=== PATIENT | female | born 1965 | race African-American/Black ===

== ENCOUNTER 2017-01-20 10:26 | Emergency (ER) | payer MEDICARE, MEDICAID ==
[~2017-01-20] VITALS: Ht 172.7 cm; Wt 124.7 kg
[~2017-01-20 10:26] MED LIST: ABILIFY2 MG ORAL; AZITHROMYCIN250 MG ORAL; BENADRYL A12.5 MG/5 ORAL; CILOXAN 0.3% O1 DROP BOTH EYES; COGENTIN1 MG ORAL; GENTAK5 ML BOTH EYES; KENALOG 0.1% CR15 GM APPLIC; METFORMIN HCL500 M1 ORAL; NEVIRAPINE 50 MG/5 ML PO; ZOLOFT25 MG ORAL; ZYPREXA2.5 MG ORAL; [UNRECOGNIZED DRUG - OTHER] PO
[2017-01-20 10:56] VITALS: BP 111/79
[2017-01-20 12:12] VITALS: BP 111/79
--- NOTE | 2017-01-20 16:44 | Diagnostic Imaging Report ---
Indication: PAIN Technique: 3 views left hand Comparison: none Findings: Unusual focal area of chronic appearing periosteal thickening is seen on the proximal ulnar aspect of the third proximal phalangeal shaft. No acute fractures. No dislocations. The joint spaces are preserved. Impression: No acute bony trauma Unusual focal chronic appearing periosteal thickening of the third proximal phalanx
--- NOTE | 2017-01-20 16:44 | Diagnostic Imaging Report ---
Clinical Indication:PAIN Technique: 3 views of the the wrist Comparison: None Findings: No acute fractures. No dislocations. The joint spaces are preserved. Impression: Negative
--- NOTE | 2017-01-21 14:57 | Emergency Room Report ---
History of Present Illness General Chief Complaint: Upper Extremity Injury Source: Patient Present Illness HPI 51-year-old female presents ED complaining of left wrist pain and swelling. States 3 days ago she actually hit her left hand against a metal pole. Notes continuing pain and swelling to the left wrist since. 03/18. dull. Nonradiating. No other aggravating or relieving factors. Denies any other injuries. Denies any other associated symptoms Allergies: Coded Allergies: No Known Allergies (Verified Allergy, Unknown, 12/08/06) Patient History Past Medical History: DM, HTN Past Surgical History: none Pertinent Family History: none Social History: Denies: alcohol use, drug use, smoking Last Menstrual Period: hyst Now: No Immunizations: UTD Reviewed Nursing Documentation: PMH: Agreed, PSxH: Agreed Nursing Documentation-PMH Past Medical History: No History, Except For Hx Cardiac Problems: No - HIV Hx Hypertension: Yes Hx Diabetes: Yes Review of Systems All Other Systems: negative except mentioned in HPI Physical Exam Vital Signs Date Time Temp Pulse Resp B/P Pulse Ox O2 Delivery O2 Flow Rate FiO2 01/20/17 10:40 98.4 82 18 111/79 98 Room Air Sp02 EP Interpretation: reviewed, normal General Appearance: no apparent distress, alert, GCS 15, non-toxic Head: normocephalic Eyes: bilateral eye PERRL, bilateral eye normal inspection ENT: normal ENT inspection Neck: normal inspection Respiratory: normal inspection Cardiovascular #1: normal inspection Gastrointestinal: normal inspection Rectal: deferred Genitourinary: no CVA tenderness Musculoskeletal: tender - L wrist Neurologic: alert, oriented x3, responsive, motor strength/tone normal, sensory intact, speech normal Psychiatric: normal inspection Skin: normal inspection Lymphatic: normal inspection Procedures Splinting Splinting : Consent: Verbal Pre-Made Type: AYLA wrap - L wrist Pre-Proc Neuro Vasc Exam: normal Post-Proc Neuro Vasc Exam: normal Patient Tolerated: Well Complications: None Medical Decision Making Diagnostic Impression: Primary Impression: Wrist contusion Qualified Codes: S60.212A - Contusion of left wrist, initial encounter ER Course Hospital Course 51-year-old F presents to ED complaining of L wrist pain s/p hit metal pole Differential diagnoses include: Fracture, dislocation, sprain, contusion Clinical course Patient placed on stretcher. After initial history and physical, I ordered Xrays of L wrist/hand Xrays prelim read shows no acute fracture/dislocation. placed in ayla wrap Diagnosis - wrist contusion Stable and discharged to home. apply ice, keep elevated. weight bear as tolerated. Followup with PMD. Return to ED if symptoms recur or worsen Other X-Ray Diagnostic Results X-Ray ordered: L wrist, L hand # of Views/Limited Vs Complete: 3 View Interpretation: no fractures, no dislocation, no soft tissue swelling Indication: Pain Impression: No acute disease Date Electronically Signed: Jan 20, 2017 Time Electronically Signed: 12:30 Interpreting ER Physician: Timmy Worrell MD Last Vital Signs Date Time Temp Pulse Resp B/P Pulse Ox O2 Delivery O2 Flow Rate FiO2 01/20/17 12:12 98.4 81 18 111/79 98 Room Air Status: improved Disposition: HOME, SELF-CARE Condition: Stable Patient Instructions: Contusion, [id number] TIMMY WORRELL M.D. Jan 21, 2017 14:57
== END 2017-01-20 12:19 | disposition home or self-care (01) ==
LOC: EMR 11:36
DX: S60.212A Contusion of left wrist, initial encounter (principal); W22.8XXA Striking against or struck by other objects, initial encounter; Y93.9 Activity, unspecified; Y92.9 Unspecified place or not applicable; I10 Essential (primary) hypertension; E11.9 Type 2 diabetes mellitus without complications
CPT/HCPCS: 29260; 99284

== ENCOUNTER → 2017-03-04 | Outpatient (CLI) | payer MEDICARE, MEDICAID ==
--- NOTE | 2017-03-05 08:33 | Diagnostic Imaging Report ---
Indications: Persistent pain in left wrist since trauma 6 weeks ago Technique: Coronal and axial T1-weighted fast spin-echo and proton density weighted fat saturated fast spin-echo, coronal proton density weighted fast spin-echo, axial T2-weighted fat-saturated fast spin-echo, and sagittal STIR sequences of the left breast performed without intravenous or intra-articular gadolinium administration. Findings: Comparison: None The first extensor tendon compartment beginning at the level of the distal radius and extending distally is abnormal. The contained extensor pollicis brevis and abductor pollicis longus tendons are intact but appear enlarged and diffusely edematous from the level of the radial styloid distally. No discrete linear signal change. These changes extend to the distal insertion site of the abductor pollicis longus tendon; the distal extent of the extensor pollicis brevis tendon is not imaged. The surrounding tendon sheaths are expanded and fluid-filled. The overlying soft tissues are edematous. Remaining extensor and all flexor tendons appear intact, normal in configuration and signal characteristics without intrinsic signal change or surrounding fluid. Carpal tunnel is unremarkable in appearance. Guyon's canal is unremarkable in appearance. Extensor and flexor retinacula, dorsal radial ulnar, radioscaphocapitate, ulnotriquetral, scapholunate, and lunotriquetral ligaments appear intact. Triangular fibrocartilage appears intact, normal in configuration and signal characteristics. Its radial, foveal, and ulnar styloid attachments appear intact. Ulnomeniscal homologue appears intact. There is suggestion of mild edema adjacent to the latter 2 structures. A cluster of small cystic-appearing foci is present in the deep soft tissues immediately adjacent to the volar margin of the radioscaphoid joint, female with early measuring approximately 10 x 9 x 7 mm. Surrounding soft tissues are unremarkable. Small cystic foci are also noted in multiple carpal bones. The distal radius and ulna, proximal and distal carpal row, and proximal metacarpals all demonstrate normal configuration and otherwise normal signal characteristics. No evidence of fracture. Articular alignments all appear intact. No abnormal joint space widening. IMPRESSION: Abnormalities of the first extensor tendon compartment as described. Diagnostic possibilities include moderate to high-grade traumatic tendon strains without discrete tear or De Quervain's tenosynovitis, of which this is a classic MRI appearance. Though this entity is typically caused by chronic overuse, it can also be seen in the setting of acute trauma. Suggestion of mild edema adjacent to the peripheral components of the fragment fibrocartilage complex, of uncertain significance. Image resolution is insufficient for optimal evaluation. If clinically indicated, recommend repeat MRI/MR arthrography on a scanner capable of high-resolution musculoskeletal imaging. Cluster of small cystic foci adjacent to volar margin of radioscaphoid joint, nonspecific, most likely small ganglion cysts Small intracarpal cysts may be degenerative
== END | disposition home or self-care (01) ==
LOC: MRI 08:55
DX: M25.532 Pain in left wrist (principal)

== ENCOUNTER 2017-07-03 10:21 | Emergency (ER) | payer MEDICARE, MEDICAID ==
[~2017-07-03] VITALS: Ht 172.7 cm; Wt 125.6 kg
[2017-07-03 10:25] VITALS: BP 131/85
[2017-07-03] MEDS ORDERED: EPZICOM1 TAB ORAL (10:30)
--- NOTE | 2017-07-03 10:39 | Emergency Room Report ---
History of Present Illness General Chief Complaint: Eye Problems Source: Patient Present Illness HPI Patient presents with complaints of left thigh and redness and discharge Started 2 days ago and noticed increased discharge today Denies any visual change Denies any headache She feels an irritation and scratchy sensation in the left eye Denies any fevers or chills Denies any rash otherwise Allergies: Coded Allergies: No Known Allergies (Verified Allergy, Unknown, 12/08/06) Patient History Past Medical History: see triage record Pertinent Family History: none Last Menstrual Period: Post Reviewed Nursing Documentation: PMH: Agreed, PSxH: Agreed Nursing Documentation-PMH Hx Cardiac Problems: No - HIV+ Hx Hypertension: Yes Hx Diabetes: Yes - PREDIABETIC Review of Systems All Other Systems: negative except mentioned in HPI Physical Exam Vital Signs Date Time Temp Pulse Resp B/P (MAP) Pulse Ox O2 Delivery O2 Flow Rate FiO2 07/03/17 10:25 97.9 88 17 131/85 96 Room Air Sp02 EP Interpretation: reviewed, normal General Appearance: well appearing, no apparent distress Head: normocephalic, atraumatic Eyes: left eye other - Conjunctival erythema mild discharge, upper and lower eyelids also appear mildly inflamed, otherwise extraocular motor intact, no signs of any foreign body, pupils react appropriately, ENT: normal pharynx, no angioedema Neck: supple, thyroid normal Respiratory: lungs clear, normal breath sounds Cardiovascular #1: regular rate, rhythm, no edema Musculoskeletal: normal inspection Neurologic: alert, oriented x3, responsive Skin: other - as above Lymphatic: no adenopathy Medical Decision Making Diagnostic Impression: Primary Impression: Bacterial Conjunctivitis ER Course Given the exam and history patient appears to have findings in line with bacterial conjunctivitis There is some mild swelling of the eyelids as well and periorbital cellulitis is considered as an early presentation patient was provided with ointments oral antibiotic and requires close followup Last Vital Signs Date Time Temp Pulse Resp B/P (MAP) Pulse Ox O2 Delivery O2 Flow Rate FiO2 07/03/17 10:25 97.9 88 17 131/85 96 Room Air Status: unchanged Disposition: HOME, SELF-CARE Condition: Stable Additional Instructions: Patient is provided with the discharge instructions notified to follow up with primary doctor in the next 2-3 days otherwise return to the er with any worsening symptoms. Please note that this report is being documented using [employer] technology. This can lead to erroneous entry secondary to incorrect interpretation by the dictating instrument. BLANCA CHO D.O. Jul 03, 2017 10:39
[2017-07-03] MEDS ORDERED: GENTAMICIN SUL3.5 GM OP (10:40)
[2017-07-03] MEDS ORDERED: AUGMENTIN 875-1 EAC1 ORAL (10:40)
[2017-07-03 10:55] VITALS: BP 110/76
== END 2017-07-03 10:50 | disposition home or self-care (01) ==
LOC: EMR 10:49
DX: H10.9 Unspecified conjunctivitis (principal); B96.89 Other specified bacterial agents as the cause of diseases classified elsewhere; I10 Essential (primary) hypertension
CPT/HCPCS: 99282

== ENCOUNTER 2018-05-02 15:45 | Emergency (ER) | payer MEDICARE, MEDICAID ==
[~2018-05-02] VITALS: Ht 172.7 cm; Wt 124.3 kg
[~2018-05-02 15:45] MED LIST changes: +AUGMENTIN 875-1 EAC1 ORAL; +EPZICOM1 TAB ORAL; +GENTAMICIN SUL3.5 GM OP
--- NOTE | 2018-05-02 16:47 | Emergency Room Report ---
History of Present Illness General Chief Complaint: Skin Rash/Abscess Source: Patient Present Illness HPI 52-year-old female presents emergency department complaining of multiple itchy insect bites to the lower extremities and bilateral forearm since yesterday. Patient reports she had some mild relief with application of witch monica however her symptoms have returned. Patient reports an area in particular has had increased and erythema and she is worried because she is immune compromised that she is HIV positive. Patient reports pain as very out of 10 in severity . Pt. denies fevers, chills or swollen tender lymph nodes. Denies lesions/ rashes elsewhere on the body. Denies new medications or body washes or creams. Denies swelling of the lips, tongue , throat or airway. Denies wheezing, or shortness of breath. Denies recent travel, recent illness or ill contacts. denies blisters, oral lesions, or sloughing of the skin Allergies: Coded Allergies: No Known Allergies (Verified , 05/02/18) Patient History Past Medical History: see triage record, HIV Past Surgical History: none Pertinent Family History: none Last Menstrual Period: na Now: No Reviewed Nursing Documentation: PMH: Agreed; PSxH: Agreed Nursing Documentation-PMH Past Medical History: No History, Except For Hx Cardiac Problems: No - HIV+ Hx Hypertension: Yes Hx Diabetes: Yes - PREDIABETIC Review of Systems All Other Systems: negative except mentioned in HPI Physical Exam Vital Signs Date Time Temp Pulse Resp B/P (MAP) Pulse Ox O2 Delivery O2 Flow Rate FiO2 05/02/18 15:55 98.2 90 15 119/85 96 Room Air 98.2 Sp02 EP Interpretation: reviewed, normal General Appearance: no apparent distress, alert, GCS 15, non-toxic Head: normocephalic, atraumatic Eyes: bilateral eye normal inspection, bilateral eye PERRL ENT: hearing grossly normal, no angioedema, normal voice, other - no swelling of the lips or tongue Neck: full range of motion Respiratory: chest non-tender, lungs clear, normal breath sounds, no wheezing, speaking full sentences Cardiovascular #1: regular rate, rhythm Musculoskeletal: back normal, gait/station normal, normal range of motion, non- tender Neurologic: alert, oriented x3, responsive, motor strength/tone normal, sensory intact, normal gait, speech normal, grossly normal Psychiatric: judgement/insight normal Skin: normal color, warm/dry, well hydrated, rash - multiple discrete insect bites all less than 1cm in diameter scattered on the Bilateral LE's and forearms. some surrounding erythema and increased temperature to palpation to lesion on the anterior right cruz. no blisters or vesicles. Lymphatic: no adenopathy Medical Decision Making PA Attestation Dr. Davalos is my supervising Physician whom patient management has been discussed with. Diagnostic Impression: Primary Impression: Insect bites of multiple sites, infected ER Course 52-year-old female presents emergency department complaining of multiple itchy insect bites to the lower extremities and bilateral forearm since yesterday. Patient reports she had some mild relief with application of witch monica however her symptoms have returned. Patient reports an area in particular has had increased and erythema and she is worried because she is immune compromised that she is HIV positive. Patient reports pain as very out of 10 in severity . Pt. denies fevers, chills or swollen tender lymph nodes. Denies lesions/ rashes elsewhere on the body. Denies new medications or body washes or creams. Denies swelling of the lips, tongue , throat or airway. Denies wheezing, or shortness of breath. Denies recent travel, recent illness or ill contacts. denies blisters, oral lesions, or sloughing of the skin Ddx considered but are not limited to cellulitis, scabies, insect bites, tic bites, spider bites, contact dermatitis, Drug reaction, allergic reaction, fungal infection, lice. Vital signs: are WNL, pt. is afebrile H&PE are most consistent with multiple insect bites with localized reaction, suspicious for secondary cellulitis on anterior right cruz. ORDERS: none required at this time, the diagnosis is clinical ED INTERVENTIONS: None required at this time. DISCHARGE: At this time pt. is stable for d/c to home. Will provide printed patient care instructions, and any necessary prescriptions. Care plan and follow up instructions have been discussed with the patient prior to discharge. Last Vital Signs Date Time Temp Pulse Resp B/P (MAP) Pulse Ox O2 Delivery O2 Flow Rate FiO2 05/02/18 15:55 98.2 90 15 119/85 96 Room Air 98.2 Disposition: HOME, SELF-CARE Condition: Stable Patient Instructions: Insect Bite, [id number] Additional Instructions: Take medications as directed. Follow up with a Primary Care Provider in 3-5 days, even if your symptoms have resolved. --Please review list of primary care clinics, if you do not already have a primary care provider Return sooner to ED if new symptoms occur, or current symptoms become worse. Do not drink alcohol, drive, or operate heavy machinery while taking Benadryl as this may cause drowsiness. - Please note that this Emergency Department Report was dictated using [employer] technology software, occasionally this can lead to erroneous entry secondary to interpretation by the dictation equipment. Shyann Box May 02, 2018 16:47
[2018-05-02] MEDS ORDERED: CEPHALEXIN500 MG ORAL (16:48)
[2018-05-02] MEDS ORDERED: BENADRYL ALLERG25 M1 PO (16:48)
[2018-05-02] MEDS ORDERED: HYDROCORTISONE30 G2 TP (16:48)
[2018-05-02 17:11] VITALS: BP 119/85
[2018-05-02 17:16] VITALS: BP 119/85
== END 2018-05-02 17:30 | disposition home or self-care (01) ==
LOC: EMR 16:58
DX: S50.862A Insect bite (nonvenomous) of left forearm, initial encounter (principal); S50.861A Insect bite (nonvenomous) of right forearm, initial encounter; S80.862A Insect bite (nonvenomous), left lower leg, initial encounter; S80.861A Insect bite (nonvenomous), right lower leg, initial encounter; W57.XXXA Bitten or stung by nonvenomous insect and other nonvenomous arthropods, initial encounter; Y92.9 Unspecified place or not applicable; R21 Rash and other nonspecific skin eruption; I10 Essential (primary) hypertension
CPT/HCPCS: 99282

== ENCOUNTER 2019-01-28 21:00 | Emergency (ER) | payer MEDICARE, MEDICAID ==
[~2019-01-28] VITALS: Ht 172.7 cm; Wt 125.2 kg
[~2019-01-28 21:00] MED LIST changes: +BENADRYL ALLERG25 M1 PO; +CEPHALEXIN500 MG ORAL; +HYDROCORTISONE30 G2 TP
[2019-01-28 21:25] VITALS: BP 130/90
--- NOTE | 2019-01-28 21:25 | NUR ---
ED Nurse Note: Pt arrived ED from home, c/o right arm and legs with multiple insects bit with redness and itching today. Pt is A/O X 4. VSS, waiting for orders.
[2019-01-28] MEDS ORDERED: BENADRYL25 MG ORAL (21:29)
[2019-01-28] MEDS ORDERED: CEPHALEXIN500 MG ORAL (21:29)
--- NOTE | 2019-01-28 21:36 | Emergency Room Report ---
History of Present Illness General Chief Complaint: Animal Bite Source: Patient Present Illness HPI Patient presents with complaints of several areas of insect bite Mainly involving the right arm and right leg This occurred yesterday patient reports increased itching She has had similar episode previously intervention at home helped minimally Denies any fevers or chills denies any vomiting or diarrhea denies any abdominal pain Allergies: Coded Allergies: No Known Allergies (Verified , 05/02/18) Patient History Past Medical History: see triage record Pertinent Family History: none Last Menstrual Period: HYSTERECTOMY Now: No Reviewed Nursing Documentation: PMH: Agreed; PSxH: Agreed Nursing Documentation-PMH Past Medical History: No History, Except For Hx Hypertension: Yes Hx Diabetes: Yes History Of Psychiatric Problem: Yes - PARANOID SCHIZOPHRENIA Review of Systems All Other Systems: negative except mentioned in HPI Physical Exam Vital Signs Date Time Temp Pulse Resp B/P (MAP) Pulse Ox O2 Delivery O2 Flow Rate FiO2 01/28/19 21:13 98.2 90 17 130/90 (103) 98 Room Air Sp02 EP Interpretation: reviewed, normal General Appearance: well appearing, no apparent distress Head: normocephalic, atraumatic Eyes: bilateral eye PERRL, bilateral eye EOMI ENT: hearing grossly normal, normal pharynx, TMs + canals normal, uvula midline Neck: full range of motion, supple, no meningismus, no bony tend Respiratory: lungs clear, normal breath sounds, no rhonchi, no respiratory distress, no retraction, no accessory muscle use Cardiovascular #1: normal peripheral pulses, regular rate, rhythm, no edema, no gallop, no JVD, no murmur Gastrointestinal: normal bowel sounds, non tender, soft, no mass, no organomegaly, non-distended, no guarding, no hernia, no pulsatile mass, no rebound Genitourinary: no CVA tenderness Musculoskeletal: normal inspection Neurologic: oriented x3, responsive, 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 tested, motor strength/ tone normal, sensory intact Psychiatric: mood/affect normal Skin: other - Several areas of mildly raised erythematous lesions on the right forearm upper arm right lower leg 2 of them specifically have mildly raised appearance with increased erythema no obvious fluctuance, Lymphatic: normal inspection, no adenopathy Medical Decision Making Diagnostic Impression: Primary Impression: insect bite Additional Impression: Cellulitis ER Course Given some of the area as there is consideration for early cellulitis patient placed on antibiotics And Benadryl and will have close outpatient follow-up Last Vital Signs Date Time Temp Pulse Resp B/P (MAP) Pulse Ox O2 Delivery O2 Flow Rate FiO2 01/28/19 21:25 98.2 90 17 130/90 98 Room Air Status: unchanged Disposition: HOME, SELF-CARE Condition: Stable Scripts Diphenhydramine Hcl* (BENADRYL*) 25 Mg Capsule 25 MG ORAL Q6H PRN for Itching for 7 Days, CAP Prov: Atiya Garvin DO 01/28/19 Cephalexin* (KEFLEX*) 500 Mg Capsule 500 MG ORAL EVERY 6 HOURS for 7 Days, CAP Prov: Atiya Garvin DO 01/28/19 Patient Instructions: Insect Bite, [id number] Additional Instructions: Patient is provided with the discharge instructions notified to follow up with primary doctor in the next 2-3 days otherwise return to the er with any worsening symptoms. Please note that this report is being documented using [employer] technology. This can lead to erroneous entry secondary to incorrect interpretation by the dictating instrument. Atiya Garvin DO Jan 28, 2019 21:36
[2019-01-28 21:41] VITALS: BP 131/92
--- NOTE | 2019-01-28 21:41 | NUR ---
ER DISCHARGE NOTE: Patient is cleared to be discharged per Dr. Garvin. Pt is aox4 on room air with stable vital signs. Pt was given dc and prescription instructions and was able to verbalize understanding. Pt's ID band removed . Pt is able to ambulate with steady gait and took all belongings.
== END 2019-01-28 21:41 | disposition home or self-care (01) ==
LOC: EMR 21:30
DX: S40.861A Insect bite (nonvenomous) of right upper arm, initial encounter (principal); S80.861A Insect bite (nonvenomous), right lower leg, initial encounter; L03.115 Cellulitis of right lower limb; L03.113 Cellulitis of right upper limb; Z90.710 Acquired absence of both cervix and uterus; E11.9 Type 2 diabetes mellitus without complications; I10 Essential (primary) hypertension; F20.0 Paranoid schizophrenia; W57.XXXA Bitten or stung by nonvenomous insect and other nonvenomous arthropods, initial encounter; Y92.9 Unspecified place or not applicable
CPT/HCPCS: 99282

== ENCOUNTER 2019-12-08 08:26 | Emergency (ER) | payer MEDICARE, MEDICAID ==
[~2019-12-08] VITALS: Ht 172.7 cm; Wt 121.6 kg
[~2019-12-08 08:26] MED LIST changes: +BENADRYL25 MG ORAL
[2019-12-08 08:35] VITALS: BP 133/90
--- NOTE | 2019-12-08 08:35 | NUR ---
ED Nurse Note: Patient walked into ED from home c/o vaginal abscess that burst last night. Patient states that blood and pus came out and she wants to get antibiotics today. Patient AxO x 4, in patient gown, no s/s of acute distress.
[2019-12-08] MEDS ORDERED: CEPHALEXIN500 MG ORAL (09:17)
[2019-12-08] MEDS ORDERED: BACTRIM DS TAB1 EAC1 ORAL (09:17)
[2019-12-08 09:18] VITALS: BP 133/90
--- NOTE | 2019-12-08 09:18 | NUR ---
ER DISCHARGE NOTE: Patient is cleared to be discharged per Dr. Worrell, pt is aox4, on room air, with stable vital signs. pt was given dc and prescription instructions, pt was able to verbalize understanding, pt id band removed. pt is able to ambulate with steady gait. pt took all belongings.
--- NOTE | 2019-12-08 10:24 | Emergency Room Report ---
History of Present Illness General Chief Complaint: Skin Rash/Abscess Present Illness HPI 54-year-old female presents ED with abscess to the genital area. Noticed yesterday.. States that it popped and is draining white fluid. Pain is dull, 7 out of 10, nonradiating. Denies fevers or chills. Denies nausea or vomiting. Denies sick contacts or recent travel. No other aggravating relieving factors. Denies any other associated symptoms Allergies: Coded Allergies: No Known Allergies (Verified , 05/02/18) COVID-19 Screening Contact w/high risk pt: No Recent Travel to affected area: No Experienced COVID-19 symptoms?: No Patient History Past Medical History: DM, HTN, psych hx, HIV Pertinent Family History: none Social History: Denies: smoking, alcohol use, drug use Now: No Immunizations: UTD Reviewed Nursing Documentation: PMH: Agreed; PSxH: Agreed Nursing Documentation-PMH Hx Hypertension: Yes Hx Diabetes: Yes History Of Psychiatric Problem: Yes Review of Systems All Other Systems: negative except mentioned in HPI Physical Exam Vital Signs Date Time Temp Pulse Resp B/P (MAP) Pulse Ox O2 Delivery O2 Flow Rate FiO2 12/08/19 08:34 99.1 81 20 133/90 (104) 95 Room Air Sp02 EP Interpretation: reviewed, normal General Appearance: no apparent distress, alert, GCS 15, non-toxic, obese Head: normocephalic, atraumatic Eyes: bilateral eye normal inspection, bilateral eye PERRL ENT: hearing grossly normal, normal pharynx, no angioedema, normal voice Neck: full range of motion, supple/symm/no masses Respiratory: chest non-tender, lungs clear, normal breath sounds, speaking full sentences Cardiovascular #1: regular rate, rhythm, no edema Cardiovascular #2: 2+ carotid (R), 2+ carotid (L), 2+ radial (R), 2+ radial (L) , 2+ dorsalis pedis (R), 2+ dorsalis pedis (L) Gastrointestinal: normal bowel sounds, non tender, soft, non-distended, no guarding, no rebound Rectal: deferred Genitourinary: normal inspection, no CVA tenderness, other - fresh work wrapper layer present. abscess to R inguinal area. flucutant with discharge. minimal surrounding erythema/induration Musculoskeletal: back normal, normal range of motion, gait/station normal, non- tender Neurologic: alert, motor strength/tone normal, oriented x3, sensory intact, responsive, speech normal Psychiatric: judgement/insight normal, memory normal, mood/affect normal, no suicidal/homicidal ideation Reflexes: 3+ bicep (R), 3+ bicep (L), 3+ tricep (R), 3+ tricep (L), 3+ knee (R) , 3+ knee (L) Lymphatic: no adenopathy Medical Decision Making Diagnostic Impression: Primary Impression: Abscess ER Course Hospital Course 54-year-old F presents to ED with abscess to R inguinal area Clinical course Patient placed on stretcher. Geriatric Nursing Assistant present. After initial history exam reveals female in no acute distress. Inguinal area there is a abscess noted on the right. There is discharge currently. Using pressure I was able to express additional purulent discharge. Patient tolerated without complication. Dressing applied. I discussed findings with patient. Will prescribe antibiotics. Warm compresses. Safe for discharge for close outpatient follow-up. States she has a PMD Diagnosis - abscess Stable and discharged to home with prescription for bactrim, Keflex. wound Care instructions given. Followup with PMD. Return to ED if any signs of infection develop Last Vital Signs Date Time Temp Pulse Resp B/P (MAP) Pulse Ox O2 Delivery O2 Flow Rate FiO2 12/08/19 09:18 99.1 20 133/90 95 Room Air 12/08/19 08:34 81 Status: improved Disposition: HOME, SELF-CARE Condition: Stable Scripts Trimethoprim/Sulfamethoxazole 160/800* (BACTRIM DS TABLET*) 1 Each Tablet 1 TAB ORAL Q12H, #14 TAB 0 Refills Prov: Timmy Worrell MD 12/08/19 Cephalexin* (KEFLEX*) 500 Mg Capsule 500 MG ORAL EVERY 6 HOURS for 7 Days, CAP Prov: Timmy Worrell MD 12/08/19 Patient Instructions: Abscess Timmy Worrell MD December 08, 2019 10:24
== END 2019-12-08 09:18 | disposition home or self-care (01) ==
LOC: EMR 08:52
DX: L02.214 Cutaneous abscess of groin (principal); E11.9 Type 2 diabetes mellitus without complications; I10 Essential (primary) hypertension; B20 Human immunodeficiency virus [HIV] disease
CPT/HCPCS: 99282

== ENCOUNTER 2020-04-29 15:07 | Emergency (ER) | payer MEDICARE, MEDICAID ==
[~2020-04-29] VITALS: Ht 172.7 cm; Wt 121.6 kg
[~2020-04-29 15:07] MED LIST changes: +BACTRIM DS TAB1 EAC1 ORAL
--- NOTE | 2020-04-29 15:28 | Emergency Room Report ---
History of Present Illness General Chief Complaint: Skin Rash/Abscess Source: Patient Present Illness HPI 54-year-old female with history of prediabetes Beatties currently taking metformin and reporting that sugars well controlled here complaining of pruritic rash in lower extremities after hiking did that had fleabites. Denies any pain. Denies any fever and chills, chest pain shortness of breath. Denies any anaphylaxis. Has not taken medication for symptom relief. Denies any recent travel or camping. Denies tobacco smoke, marijuana use, other drug use. Allergies: Coded Allergies: No Known Allergies (Verified , 05/02/18) COVID-19 Screening Contact w/high risk pt: No Recent Travel to affected area: No Experienced COVID-19 symptoms?: No COVID-19 Testing performed [employer] ADMINISTRATOR: No Patient History Past Medical History: see triage record Past Surgical History: none Pertinent Family History: none Last Menstrual Period: none Now: No Immunizations: UTD Reviewed Nursing Documentation: PMH: Agreed; PSxH: Agreed Nursing Documentation-PMH Past Medical History: No History, Except For Hx Hypertension: Yes Hx Diabetes: Yes Review of Systems All Other Systems: negative except mentioned in HPI Physical Exam Vital Signs Date Time Temp Pulse Resp B/P (MAP) Pulse Ox O2 Delivery O2 Flow Rate FiO2 04/29/20 15:16 98.1 81 16 139/88 (105) 97 Room Air Sp02 EP Interpretation: reviewed, normal General Appearance: no apparent distress, alert, GCS 15, non-toxic Head: normocephalic, atraumatic Eyes: bilateral eye normal inspection, bilateral eye PERRL ENT: hearing grossly normal, normal pharynx, no angioedema, normal voice Neck: full range of motion, supple/symm/no masses Respiratory: chest non-tender, lungs clear, normal breath sounds, no rhonchi, speaking full sentences Cardiovascular #1: regular rate, rhythm, no edema, no murmur Cardiovascular #2: 2+ dorsalis pedis (R), 2+ dorsalis pedis (L) Gastrointestinal: normal bowel sounds, non tender, soft, non-distended, no guarding, no rebound Rectal: deferred Musculoskeletal: back normal Neurologic: alert, motor strength/tone normal, oriented x3, sensory intact, responsive, speech normal Psychiatric: judgement/insight normal, memory normal, mood/affect normal, no suicidal/homicidal ideation Skin: rash - Noninfected insect bites noted bilateral lower extremities not warm to touch Lymphatic: no adenopathy Medical Decision Making PA Attestation ALL Diagnosis and treatment plan reviewed and discussed with my supervising physician Dr. Shanks Diagnostic Impression: Primary Impression: Flea bite of lower leg ER Course 54-year-old female with history of prediabetes Beatties currently taking metformin and reporting that sugars well controlled here complaining of pruritic rash in lower extremities after hiking did that had fleabites. Denies any pain. Denies any fever and chills, chest pain shortness of breath. Denies any anaphylaxis. Has not taken medication for symptom relief. Denies any recent travel or camping. Denies tobacco smoke, marijuana use, other drug use. Ddx considered but are not limited to: Eczema, scabies, lice, Vital signs: are WNL, pt. is afebrile H&PE are most consistent with: Flea bite noninfected ORDERS: Prednisone, hydrocortisone cream, Benadryl ED INTERVENTIONS: None required at this time. DISCHARGE: At this time pt. is stable for d/c to home. Will provide printed patient care instructions, and any necessary prescriptions. Care plan and follow up instructions have been discussed with the patient prior to discharge. Patient to medication as directed, follow primary care provider, wash all clothes and bedding, if worsening symptoms return to the emergency room Last Vital Signs Date Time Temp Pulse Resp B/P (MAP) Pulse Ox O2 Delivery O2 Flow Rate FiO2 04/29/20 15:16 98.1 81 16 139/88 (105) 97 Room Air Disposition: HOME, SELF-CARE Condition: Stable Scripts Diphenhydramine HCl (Benadryl) 25 Mg Capsule 25 MG PO BID, #20 CAP Prov: Steve León 04/29/20 Hydrocortisone Acetate (Hydrocortisone Acetate 1% Cream) 28.4 Gm Cream..g. 2 GM TP TID, #28 GM Prov: Steve León 04/29/20 Prednisone* (PREDNISONE*) 20 Mg Tablet 40 MG ORAL DAILY for 3 Days, #6 TAB Prov: Steve León 04/29/20 Patient Instructions: Insect Bite, [id number] Additional Instructions: Take medication as directed, follow-up with your primary care provider, if worsening symptoms return to the emergency room Steve León Apr 29, 2020 15:28
[2020-04-29] MEDS ORDERED: HYDROCORTISON28.4 G6 TP (15:36)
[2020-04-29] MEDS ORDERED: PREDNISONE20 MG ORAL (15:36)
[2020-04-29] MEDS ORDERED: BENADRYL25 M3 PO (15:36)
--- NOTE | 2020-04-29 15:45 | NUR ---
ED Nurse Note: Pt cleared by health care Provider for discharge. DC instructions/prescription was given and explained to pt and verbalized understanding of teachings. All medical deviecs such as ID band removed. Pt is AAO x4, ambulatory and left with all personal belongings.
[2020-04-29 18:10] VITALS: BP 139/88
== END 2020-04-29 15:45 | disposition home or self-care (01) ==
LOC: EMR 15:34
DX: S80.862A Insect bite (nonvenomous), left lower leg, initial encounter (principal); S80.861A Insect bite (nonvenomous), right lower leg, initial encounter; W57.XXXA Bitten or stung by nonvenomous insect and other nonvenomous arthropods, initial encounter; Y92.9 Unspecified place or not applicable; R73.03 Prediabetes; Z79.84 Long term (current) use of oral hypoglycemic drugs; I10 Essential (primary) hypertension
CPT/HCPCS: 99282